=== PATIENT | male | born 1965 | race Caucasian/White ===

== ENCOUNTER 2018-08-10 10:37 | Outpatient (RCR) | payer SELFPAY ==
[2018-08-10 11:05] LABS: INR 4.1 (0.8-1.4); PROTHROMBIN TIME PATIENT 41.3 SEC (12.2-14.7)
== END 2018-11-08 | disposition home or self-care (01) ==
LOC: EDSTATUS 10:37 → LAB FS 10:37
PROVIDERS: ATTEND Pediatrics
DX: I26.99 Other pulmonary embolism without acute cor pulmonale (principal); D68.59 Other primary thrombophilia
CPT/HCPCS: 36415; 85610

== ENCOUNTER 2018-12-27 21:01 | Emergency (ER) | payer SELFPAY ==
[~2018-12-27] VITALS: Ht 188 cm; Wt 127.0 kg
[2018-12-27 22:18] LABS: HEMATOCRIT 44 % (40-54); HEMOGLOBIN 14.7 G/DL (13.3-17.7); MEAN CORPUSCULAR HEMOGLOBIN 31 PG (25-34); MEAN CORPUSCULAR HGB CONC 34 G/DL (32-36); MEAN CORPUSCULAR VOLUME 93 FL (80-99); WHITE BLOOD COUNT 12.9 10^3/uL (4.3-11.0)
[2018-12-27 22:19] LABS: BASOPHILS # (AUTO) 0.1 10^3/uL (0.0-0.1); BASOPHILS % (AUTO) 1 % (0-10); EOSINOPHILS # (AUTO) 0.3 10^3/uL (0.0-0.3); EOSINOPHILS % (AUTO) 2 % (0-10); LYMPHOCYTES % (AUTO) 38 % (12-44); MEAN PLATELET VOLUME 10.2 FL (7.4-10.4); MONOCYTES # (AUTO) 0.9 X 10^3 (0.0-1.0); MONOCYTES % (AUTO) 7 % (0-12); NEUTROPHILS # (AUTO) 6.7 X 10^3 (1.8-7.8); NEUTROPHILS % (AUTO) 52 % (42-75); PLATELET COUNT 257 10^3/uL (130-400); RED CELL DISTRIBUTION WIDTH 14.8 % (10.0-14.5)
[2018-12-27 22:20] LABS: CARBON DIOXIDE 18 MMOL/L (21-32); CHLORIDE 101 MMOL/L (98-107); POTASSIUM 4.5 MMOL/L (3.6-5.0); SODIUM 137 MMOL/L (135-145)
[2018-12-27 22:21] LABS: ALANINE AMINOTRANSFERASE 17 U/L (0-55); ALBUMIN 4.2 GM/DL (3.2-4.5); ALKALINE PHOSPHATASE 68 U/L (40-136); BILIRUBIN,TOTAL 0.5 MG/DL (0.1-1.0); BUN/CREATININE RATIO 13; CREATININE SERUM 1.06 MG/DL (0.60-1.30); GFR ESTIMATED > 60; GLUCOSE 96 MG/DL (70-105); TOTAL PROTEIN 7.3 GM/DL (6.4-8.2)
--- NOTE | 2018-12-27 22:32 | NUR ---
pt. reported he the pain in his eye was now down below the eye on the left side of his cheek and also stated he was having chest pain on the left side. pt. stated he knows he is not having a heart attack its probably more of that clotting problem.
--- NOTE | 2018-12-27 22:32 | ED General ---
General Chief Complaint: Lower Extremity Stated Complaint: LT LEG SWELLING, LT EYE VISION LOST, SOB Nursing Triage Note: PT. REPORTED HIS LEFT LEG IS SWOLLEN AND HE HAS A BURNING SENSATION FROM THE LEFT KNEE TO THE GROIN. HE REPORTED HIS LEFT EYE IS BLURRY AND TWITCHING, AND HE HAS CHEST TIGHTNESS Nursing Sepsis Screen: No Definite Risk Source of Information: Patient History of Present Illness Date Seen by Provider: Dec 27, 2018 Time Seen by Provider: 21:31 Initial Comments Patient is a 53-year-old male presenting with complaints of swelling and pain to his left leg. He has a burning sensation in his left groin and thigh. He reports having pain and blurred vision from the left eye that started around 7 PM tonight. He has been having some shortness of breath for the last several days. He does have a history of a clotting disorder and has had several blood clots in the past. He is currently taking 15 mg a day of warfarin. He denies missing any doses of the medication. He also states he had approximately a sixpack appear today. He denies any trauma or injury. He became more concerned about his symptoms when his son pointed out that his left leg was so swollen. He figured that having the left eye along with the left leg swelling and pain and having shortness of breath all the same time were enough issues to bring him to the hospital to be evaluated. He drove himself here to the hospital to be seen. Allergies and Home Medications Allergies Uncoded Allergies: IVP DYE (Allergy, Unknown, 12/27/18) Patient Home Medication List Home Medication List Reviewed: Yes Review of Systems Review of Systems Constitutional: No chills, No dizziness, No fever, No weakness EENTM: blurred vision (left eye especially with the lateral vision), eye pain (left side); No ear discharge, No hearing loss, No ear pain, No double vision, No hoarseness, No mouth pain, No epistaxis, No nose congestion, No nose pain, No throat pain, No throat swelling Respiratory: cough (mild), dyspnea on exertion; No hemoptysis, No orthopnea; short of breath; No stridor, No wheezing Cardiovascular: chest pain (tightness in his chest), edema (left greater than right lower extremity) Gastrointestinal: no symptoms reported Genitourinary: no symptoms reported Musculoskeletal: see HPI Skin: change in color (reports that the left leg usually has a black or dark color to it especially when it gets very swollen like tonight.) Psychiatric/Neurological: Headache (around his left eye) Hematologic/Lymphatic: Blood Clots (history of blood clots and has a history of clotting disorder) Past Hbxjqyu-Ccbvvh-Cuyygn Hx Past Med/Social Hx: Reviewed Nursing Past Med/Soc Hx Patient Social History Recent Foreign Travel: No Contact w/Someone Who Travel: No Recent Infectious Disease Expo: No Physical Abuse: No Sexual Abuse: No Mistreated: No Fear: No Physical Exam Vital Signs Vital Signs - First Documented 12/27/18 21:06 Temp 36.0 Pulse 108 Resp 20 B/P (MAP) 142/92 (109) Pulse Ox 95 O2 Delivery Room Air Capillary Refill : Less Than 3 Seconds Height, Weight, BMI Height: '" Weight: lbs. oz. kg; 231.00 BMI Method: General Appearance: No Apparent Distress, WD/WN, Obese Eyes: Bilateral Eye PERRL, Bilateral Eye EOMI HEENT: Pharynx Normal, Other (no obvious retinal hemorrhage or abnormality on direct ophthalmoscope exam) Neck: Full Range of Motion, Normal Inspection, Non Tender, Supple; No Carotid Bruit Respiratory: Chest Non Tender, Lungs Clear, Normal Breath Sounds, No Accessory Muscle Use, No Respiratory Distress Cardiovascular: Regular Rate, Rhythm, Normal Peripheral Pulses Gastrointestinal: No Pulsatile Mass, Non Tender, Soft Extremity: Normal Range of Motion, Calf Tenderness, Pedal Edema Neurologic/Psychiatric: Alert, Oriented x3, No Motor/Sensory Deficits Skin: Normal Color, Warm/Dry Progress/Results/Core Measures Suspected Sepsis Recent Fever Within 48 Hours: No Infection Criteria Present: None New/Unexplained Altered Menta: No Sepsis Screen: No Definite Risk SIRS Temperature: Pulse: 108 Respiratory Rate: 20 Laboratory Tests 12/27/18 21:44: White Blood Count 12.9H Blood Pressure 142 /92 Mean: 109 Laboratory Tests 12/27/18 21:44: Creatinine 1.06, INR Comment 3.5H, Platelet Count 257, Total Bilirubin 0.5 Results/Orders Lab Results Laboratory Tests Test 12/27/18 21:44 Range/Units White Blood Count 12.9 H 4.3-11.0 10^3/uL Red Blood Count 4.70 4.35-5.85 10^6/uL Hemoglobin 14.7 13.3-17.7 G/DL Hematocrit 44 40-54 % Mean Corpuscular Volume 93 80-99 FL Mean Corpuscular Hemoglobin 31 25-34 PG Mean Corpuscular Hemoglobin Concent 34 32-36 G/DL Red Cell Distribution Width 14.8 H 10.0-14.5 % Platelet Count 257 130-400 10^3/uL Mean Platelet Volume 10.2 7.4-10.4 FL Neutrophils (%) (Auto) 52 42-75 % Lymphocytes (%) (Auto) 38 12-44 % Monocytes (%) (Auto) 7 0-12 % Eosinophils (%) (Auto) 2 0-10 % Basophils (%) (Auto) 1 0-10 % Neutrophils # (Auto) 6.7 1.8-7.8 X 10^3 Lymphocytes # (Auto) 5.0 H 1.0-4.0 X 10^3 Monocytes # (Auto) 0.9 0.0-1.0 X 10^3 Eosinophils # (Auto) 0.3 0.0-0.3 10^3/uL Basophils # (Auto) 0.1 0.0-0.1 10^3/uL Prothrombin Time 36.7 H 12.2-14.7 SEC INR Comment 3.5 H 0.8-1.4 Activated Partial Thromboplast Time 63 H 24-35 SEC D-Dimer < 0.27 0.00-0.49 UG/ML Sodium Level 137 135-145 MMOL/L Potassium Level 4.5 3.6-5.0 MMOL/L Chloride Level 101 98-107 MMOL/L Carbon Dioxide Level 18 L 21-32 MMOL/L Anion Gap 18 H 5-14 MMOL/L Blood Urea Nitrogen 14 7-18 MG/DL Creatinine 1.06 0.60-1.30 MG/DL Estimat Glomerular Filtration Rate > 60 BUN/Creatinine Ratio 13 Glucose Level 96 70-105 MG/DL Calcium Level 9.0 8.5-10.1 MG/DL Corrected Calcium 8.8 8.5-10.1 MG/DL Total Bilirubin 0.5 0.1-1.0 MG/DL Aspartate Amino Transf (AST/SGOT) 24 5-34 U/L Alanine Aminotransferase (ALT/SGPT) 17 0-55 U/L Alkaline Phosphatase 68 40-136 U/L Total Protein 7.3 6.4-8.2 GM/DL Albumin 4.2 3.2-4.5 GM/DL Serum Alcohol 156 H <10 MG/DL My Orders Orders - CHAPARRITA LAO MD Iv/Invasive Line Insertion .IV start (12/27/18 21:29) Cbc With Automated Diff (12/27/18 21:29) Comprehensive Metabolic Panel (12/27/18 21:29) Alcohol (12/27/18 21:29) Protime With Inr (12/27/18:) Partial Thromboplastin Time (12/27/18:) Fibrin Degradation Products (12/27/18 21:29) Ct Head Wo (12/27/18 21:29) Heparin Drip 29915 Unit/500ml (Heparin (12/27/18 23:17) Heparin (Bolus Per Protocol) (Heparin (B (12/27/18 23:30) Hydromorphone Injection (Dilaudid Inject (12/27/18 23:32) Medications Given in ED Current Medications Medications Dose Ordered Sig/Julian Route Start Time Stop Time Status Last Admin Dose Admin Heparin Sodium (Porcine) 5,000 unit ONCE ONCE IV 12/27/18 23:30 12/27/18 23:31 DC 12/27/18 23:48 5,000 UNIT Heparin Sodium/ Dextrose 500 ml @ 0 mls/hr Q0M ONCE IV 12/27/18 23:17 12/27/18 23:23 DC 12/28/18 00:05 12 MLS/HR Vital Signs/I&O 12/27/18 12/28/18 21:06 00:12 Temp 36.0 36.4 Pulse 108 98 Resp 20 16 B/P (MAP) 142/92 (109) 140/86 Pulse Ox 95 96 O2 Delivery Room Air Room Air Capillary Refill : Less Than 3 Seconds Blood Pressure Mean: 109 Progress Note #1: Progress Note Counseled patient that I did not have ultrasound or ophthalmology here. We will check basic labs and a CT scan of his head. As I did not see anything abnormal on tract ophthalmoscope feeling could not give him an answer for his visual changes. I would need him to follow up for further testing and evaluation. Ideally that would be tonight with a transfer to Hospital or doctor that has ophthalmology as well as getting him seen by a facility with ultrasound or testing that can evaluate his leg and chest since he has IV contrast dye allergy and has to have a full 24 hour prep to allow him to get the dye. Progress Note #2: Progress Note Patient's CBC and chemistry did not show any acute significant abnormality. His coags are still pending. He did complain to the nurse that his eye pain has m tristin down to his cheek down. He is complaining now that the pain in his eye and cheek as well as his chest and leg her worse. However he did drive himself here and stated that he did not have a ride. He was still saying that he did not want to be transferred. So at this point he still could not have anything for pain at that than Tylenol or Toradol or ibuprofen type medications. He was wanting to go ahead and wait until the rest of the labs and tests are back. His CT head did not show any acute significant abnormality. He had no pooling of blood or definite blood clot in his eye ball. Progress Note #3: Progress Note The coags came back and showed that his INR was 3.5 which would be therapeutic in his d-dimer was negative however with his risk factors of factor V Leiden and protein C deficiency he is still at high risk of having blood clots and without having an ultrasound or further testing and would still be concerned that he could possibly have a blood clot. When reviewing the results with the patient I advised him again that without seen in an eye doctor or having ultrasound and could not tell him that he was having a blood clot causing the symptoms. With this the patient was willing to be transferred for further evaluation. Will contact [facility] was just the closest trauma center which would likely have ophthalmology and ultrasound services the patient would need. Although he has not had any trauma to cause the symptoms fact that the hospital is a trauma Center and a larger tertiary care center would allow it to have the Specialist and services that could help to further evaluate and rule out some of his problems. Departure Impression Primary Impression: Blurred vision, left eye Additional Impressions: Swelling of left lower extremity Shortness of breath History of DVT (deep vein thrombosis) Factor 5 Leiden mutation, heterozygous Protein C deficiency Alcohol intoxication Qualified Codes: F10.920 - Alcohol use, unspecified with intoxication, uncomplicated Disposition: 02 XFER SHT-TRM HOSP Condition: Stable Transfer Time Spoke to Accepting Phy: 23:44 Transfer Progress Notes D/w [employer] Bing Storm who accepted on behalf of Dr. Richelle Ricks for the transfer to [facility]. With his visual deficit from the left eye, leg swelling, shortness of breath and history of blood clots he would need evaluation by ophthalmology and ultrasound as well as he might need a VQ scan or premedication to be able to do a CT scan with IV and I to evaluate his lungs. If the warfarin is not working for him he may need a different medication for managing his blood clots. Since his symptoms of the eye and leg swelling in her similar to previous blood clots he's had even though his INR should be therapeutic he reports that he has had blood clots with an INR over 3 in the past. Transfer Facility: [facility] Method of Transfer: EMS Departure-Patient Inst. Referrals: JARRET CULP MD (PCP/Family) Primary Care Physician CHAPARRITA LAO MD Dec 27, 2018 22:32
--- NOTE | 2018-12-27 22:42 | NUR ---
pt. choose to wait until the labs are back before taking any pain medication because he drove to the hospital and no one came with him.
[2018-12-27 22:55] LABS: PARTIAL THROMBOPLASTIN TIME 63 SEC (24-35)
[2018-12-27 23:09] LABS: INR 3.5 (0.8-1.4); PROTHROMBIN TIME PATIENT 36.7 SEC (12.2-14.7)
[2018-12-27 23:10] LABS: FIBRIN DEGRADATION PRODUCTS < 0.27 UG/ML (0.00-0.49)
[2018-12-27] MEDS: HYDROmorphone 2 MG/ML VIAL (DILAUDID) IV STA (23:47)
[2018-12-27] MEDS: HEParin 1000 UNIT/ML (10ML VIAL) FOR BOLUS IV ONE (23:48)
[2018-12-28] MEDS: HEParin DRIP 25000 UNIT/500ML 500 ML IV ONE (00:05)
--- NOTE | 2018-12-28 00:11 | NUR ---
restarted the iv in the left hand with a 20 gauge.
[2018-12-28 00:12] VITALS: BP 140/86
--- NOTE | 2018-12-28 05:56 | Diagnostic Imaging Report ---
PROCEDURE: CT head without contrast. TECHNIQUE: Multiple contiguous axial images were obtained through the brain without the use of intravenous contrast. Auto Exposure Controls were utilized during the CT exam to meet ALARA standards for radiation dose reduction. INDICATION: Left eye twitching and blurry vision. COMPARISON: None. FINDINGS: BRAIN: No parenchymal hemorrhage, midline shift or mass effect. [place]-white matter differentiation is intact. No acute infarct. No significant white matter lesions. Ventricles, sulci and basilar cisterns are normal. EXTRA-AXIAL SPACES: No subdural or epidural collections. ORBITS AND PARANASAL SINUSES: Visualized orbits and globes are intact. There is mild mucosal thickening and partial opacification of the ethmoid air cells. Visualized paranasal sinuses and mastoid air cells are otherwise clear. CALVARIUM AND SOFT TISSUES: The calvarium is intact. No fractures or suspicious bony lesions. The extracranial soft tissues are unremarkable. IMPRESSION: No acute intracranial pathology. Findings are in agreement with initial teleradiology report. Dictated by: Dictated on workstation # [id number]
== END 2018-12-28 00:35 | disposition short-term general hospital (02) ==
LOC: EDUNIT# 21:01 → ER FS 21:03
DX: M79.89 Other specified soft tissue disorders (principal); H53.8 Other visual disturbances; R06.02 Shortness of breath; Z86.718 Personal history of other venous thrombosis and embolism; D68.51 Activated protein C resistance; D68.59 Other primary thrombophilia; F10.129 Alcohol abuse with intoxication, unspecified; Z91.041 Radiographic dye allergy status; Z79.01 Long term (current) use of anticoagulants
CPT/HCPCS: 36415; 70450; 80053; 80320; 85025; 85379; 85610; 85730; 96374; 96375

== ENCOUNTER 2019-01-19 14:59 | Outpatient (RCR) | payer SELFPAY ==
[2018-12-30 15:54] LABS: INR 1.9 (0.8-1.4); PROTHROMBIN TIME PATIENT 22.8 SEC (12.2-14.7)
[2019-01-06 12:48] LABS: PROTHROMBIN TIME PATIENT 35.7 SEC (12.2-14.7)
[2019-01-06 12:49] LABS: INR 3.4 (0.8-1.4)
[2019-01-18 14:09] LABS: INR 5.9 (0.8-1.4); PROTHROMBIN TIME PATIENT 55.3 SEC (12.2-14.7)
[2019-01-19 15:33] LABS: INR 3.3 (0.8-1.4)
== END 2019-03-30 ==
LOC: LAB FS 14:59
PROVIDERS: ATTEND Pediatrics
DX: I26.99 Other pulmonary embolism without acute cor pulmonale (principal); D68.59 Other primary thrombophilia
CPT/HCPCS: 36415; 85610

== ENCOUNTER 2019-05-08 19:37 | Emergency (ER) | payer SELFPAY ==
[~2019-05-08] VITALS: Ht 187.9 cm; Wt 130.1 kg
[2019-05-08] MEDS ORDERED: NS IV 1000 ML 1,000 ML IV ONE (20:00)
--- NOTE | 2019-05-08 20:03 | ED Respiratory ---
General Chief Complaint: Respiratory Problems Stated Complaint: LEG SWELLING/PAIN,EYE PAIN,SOA Source: patient, family Exam Limitations: clinical condition History of Present Illness Date Seen by Provider: May 08, 2019 Time Seen by Provider: 19:50 Initial Comments 54-year-old male presents with acute shortness of breath left lower extremity enlargement and a long-time history of factor V Leiden deficiency and multiple pulmonary emboli and deep vein thromboses. Patient reports that he has been treated at the [facility] and [facility] numerous times. He states he is allergic to contrast media has to be given a 1 day treatment or steroids before he can have a CTA. Patient states that he notices leg swelling 2 days ago. He has dehydrated and he smokes one pack of cigarettes per day. Patient also has a history of retinal vein obstruction with "a mini stroke". He admits to some shortness of breath but no signs of severe chest pain shortness of breath or ischemic heart disease but in light of his prior history of multiple pulmonary emboli and statements that it feels the same empirically he needs to be evaluated and treated for PE. We're not able to get a CTA of the patient because of his allergy contrast media. He has given informed consent for diagnostic and therapeutic services. Reports he takes 15 mg of warfarin daily 4 days out of the week and 12.5 mg on alternate days 3 days a week. He does not know the result of his last INR. In the [facility]. Please be advised that this dictation utilizes [employer] software. As above made to correct all errors. Some errors or able to penetrate the review process. 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 PTT will also be done. Timing/Duration: yesterday, getting worse Severity: moderate Prior Episodes/Possible Cause: frequent episodes (DVT and too many to count episodes of pulmonary emboli. And also is dehydrated and admits he smokes a pack per day. She does admit that he is aware of the risks benefits and alternatives of these continued high risk behaviors in light of his factor V Leiden deficiency) Modifying Factors: Improves With Activity, Improves With Coughing, Improves With Lying Down, Improves With Rest, Improves With Other (activity and dehydration) Associated Symptoms: cough, dizziness, lightheadedness, muscle aches, shortness of breath (and long-standing history of multiple pulmonary emboli.) Allergies and Home Medications Allergies Uncoded Allergies: IVP DYE (Allergy, Unknown, 12/27/18) Patient Home Medication List Home Medication List Reviewed: Yes Review of Systems Review of Systems Constitutional: malaise, weakness, other (shortness of breath with symptoms similar to previous pulmonary emboli) EENTM: blurred vision (history of retinal vein obstruction), mouth pain (for oral hygiene and dry mucous membranes) Respiratory: cough, dyspnea on exertion, short of breath, other (history of multiple pulmonary emboli in the past secondary to factor V Leiden deficiency) Cardiovascular: chest pain, syncope, other (history of multiple pulmonary emboli) Gastrointestinal: abdominal pain (diffuse abdominal discomfort upper right and upper left chest), nausea Genitourinary: decreased output (secondary to dehydration) Musculoskeletal: back pain, joint pain, muscle pain, muscle stiffness, muscle weakness (especially in the chest secondary to shortness of breath and possible pulmonary emboli) Skin: change in color (multiple tattoos noted), dryness (insistent with dehydration) Psychiatric/Neurological: Anxiety, Headache, Pre-Existing Deficit (from high retinal vein thrombosis), Weakness Hematologic/Lymphatic: Blood Clots (factor V Leiden deficiency multiple DVTs and multiple PEs) Immunological/Allergic: no symptoms reported Past Ihivcfm-Axwajz-Rkmbpx Hx Patient Social History Smoking Status: Current Everyday Smoker Recent Foreign Travel: No Contact w/Someone Who Travel: No Physical Exam Vital Signs - First Documented 05/08/19 19:42 Temp 36.3 Pulse 92 Resp 20 B/P (MAP) 156/82 (106) Pulse Ox 100 O2 Delivery Room Air Capillary Refill : Height: '" Weight: lbs. oz. kg; 35.00 BMI Method: General Appearance: moderate distress (very shortness of breath and symptoms consistent with pulmonary emboli patient is dehydrated and weak), obese HEENT: PERRL/EOMI (is reports he had a left eye retinal vein thrombosis. States he has discomfort in the left eye and now is asking for pain medication. Removing off on any analgesics until he has further evaluation and transfer. 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, no motor/sensory deficits, alert, oriented x 3, motor weakness, depressed affect, other (pain seems to be resigned to continued pulmonary emboli because of his factor V Leiden deficiency) Skin: normal color (with multiple tattoos), tattoos/piercings Lymphatic: no adenopathy Progress/Results/Core Measures Suspected Sepsis SIRS Temperature: Pulse: Respiratory Rate: Laboratory Tests 05/08/19 19:50: White Blood Count 14.1H Blood Pressure / Mean: Laboratory Tests 05/08/19 19:50: Creatinine 1.18, INR Comment 2.1H, Platelet Count 280, Total Bilirubin 0.5 05/08/19 20:00: INR Comment Results/Orders Lab Results Laboratory Tests Test 05/08/19 19:50 05/08/19 20:00 Range/Units White Blood Count 14.1 H 4.3-11.0 10^3/uL Red Blood Count 4.77 4.35-5.85 10^6/uL Hemoglobin 15.2 13.3-17.7 G/DL Hematocrit 44 40-54 % Mean Corpuscular Volume 93 80-99 FL Mean Corpuscular Hemoglobin 32 25-34 PG Mean Corpuscular Hemoglobin Concent 34 32-36 G/DL Red Cell Distribution Width 14.4 10.0-14.5 % Platelet Count 280 130-400 10^3/uL Mean Platelet Volume 9.9 7.4-10.4 FL Neutrophils (%) (Auto) 50 42-75 % Lymphocytes (%) (Auto) 37 12-44 % Monocytes (%) (Auto) 9 0-12 % Eosinophils (%) (Auto) 3 0-10 % Basophils (%) (Auto) 1 0-10 % Neutrophils # (Auto) 7.1 1.8-7.8 X 10^3 Lymphocytes # (Auto) 5.2 H 1.0-4.0 X 10^3 Monocytes # (Auto) 1.2 H 0.0-1.0 X 10^3 Eosinophils # (Auto) 0.4 H 0.0-0.3 10^3/uL Basophils # (Auto) 0.1 0.0-0.1 10^3/uL Neutrophils % (Manual) 43 % Lymphocytes % (Manual) 46 % Monocytes % (Manual) 3 % Eosinophils % (Manual) 6 % Basophils % (Manual) 2 % Band Neutrophils 0 % Blood Morphology Comment NORMAL Prothrombin Time 24.6 H 12.2-14.7 SEC INR Comment 2.1 H 0.8-1.4 D-Dimer 0.30 0.00-0.49 UG/ML Sodium Level 139 135-145 MMOL/L Potassium Level 4.4 3.6-5.0 MMOL/L Chloride Level 103 98-107 MMOL/L Carbon Dioxide Level 22 21-32 MMOL/L Anion Gap 14 5-14 MMOL/L Blood Urea Nitrogen 15 7-18 MG/DL Creatinine 1.18 0.60-1.30 MG/DL Estimat Glomerular Filtration Rate > 60 BUN/Creatinine Ratio 13 Glucose Level 104 70-105 MG/DL Calcium Level 9.1 8.5-10.1 MG/DL Corrected Calcium 8.7 8.5-10.1 MG/DL Magnesium Level 2.1 1.6-2.4 MG/DL Total Bilirubin 0.5 0.1-1.0 MG/DL Aspartate Amino Transf (AST/SGOT) 23 5-34 U/L Alanine Aminotransferase (ALT/SGPT) 19 0-55 U/L Alkaline Phosphatase 65 40-136 U/L Total Protein 7.5 6.4-8.2 GM/DL Albumin 4.5 3.2-4.5 GM/DL Activated Partial Thromboplast Time 42 H 24-35 SEC Micro Results Microbiology 05/08/19 Influenza Types A,B Antigen (GOOD) - Final, Complete My Orders Orders - DIANELYS ALVAREZ DO Cbc And Manual Diff (05/08/19 19:53) Comprehensive Metabolic Panel (05/08/19 19:53) Protime With Inr (05/08/19 19:53) Fibrin Degradation Products (05/08/19 19:53) Urinalysis (05/08/19 19:53) Ekg Tracing (05/08/19 19:53) Chest 1 View Ap/Pa Only (05/08/19 19:53) Influenza A And B Antigens (05/08/19 19:53) Magnesium (05/08/19 19:53) Ns Iv 1000 Ml (Sodium Chloride 0.9%) (05/08/19 20:00) Ed Iv/Invasive Line Start (05/08/19 20:08) Continuous Ekg Monitoring (05/08/19 20:08) Drug Screen Stat (Urine) (05/08/19 20:25) Partial Thromboplastin Time (05/08/19 20:22) Protime With Inr (05/08/19 20:22) Heparin Drip 07983 Unit/500ml (Heparin (05/08/19 20:46) Heparin (Bolus Per Protocol) (Heparin (B (05/08/19 21:00) Medications Given in ED Current Medications Medications Dose Ordered Sig/Julian Route Start Time Stop Time Status Last Admin Dose Admin Heparin Sodium (Porcine) HEPARIN FULL PROTOC... ONCE ONCE IV 05/08/19 21:00 05/08/19 21:01 DC 05/08/19 20:58 5,000 UNIT Heparin Sodium/ Dextrose 500 ml @ 0 mls/hr Q0M ONCE IV 05/08/19 20:46 05/08/19 20:49 DC 05/08/19 21:00 10.4 MLS/HR Sodium Chloride 1,000 ml @ 100 mls/hr Q10H ONCE IV 05/08/19 20:00 05/09/19 05:59 05/08/19 20:19 100 MLS/HR Vital Signs/I&O 05/08/19 19:42 Temp 36.3 Pulse 92 Resp 20 B/P (MAP) 156/82 (106) Pulse Ox 100 O2 Delivery Room Air Capillary Refill : Progress Note : Time: 20:[address] [facility] was contacted and notes that the patient has been at their facility in the past. The patient has also been at [facility]. Patient reports she's also been to [facility]. Patient's laboratory findings thus far reveals a white count of 14.1 hemoglobin 15.2 INR 2.1 PTT 24.6 d-dimer 0.3 Chem-12 is normal. PTT is still pending. Plan to give the patient 5000 units of heparin IV as initial dose. We're waiting for the [facility] transfer unit to contact us in regard to acceptance of the patient. ECG Initial ECG Impression Date: May 08, 2019 Initial ECG Impression Time: 20:33 (Patient's EKG shows a sinus rhythm of 90 with ventricular trigeminy monophasic.) Initial ECG Rate: 90 Initial ECG Rhythm: Normal Sinus (with ventricular trigeminy) Initial ECG Intervals: QT (QTc 453) Initial ECG Impression: Nonspecific Changes (and regular trigeminy possibly consistent with pulmonary emboli) Initial ECG Comparisson: No Previous ECG Available Counseling-Symptomatic: 10+Minutes (he was given and strongly recommended to stop smoking as this factor V Leiden deficiency is severely complicated by smoking and dehydration) Departure Impression Primary Impression: Pulmonary embolism Additional Impressions: Dehydration Deep vein thrombosis, lower left extremity Severe tobacco dependence Disposition: XFER SHT-TRM HOSP Condition: Stable Transfer Transfer Reason: Exceeds level of care Time Spoke to Accepting Phy: 21:15 (Dr. Dr. Carrasco) Transfer Progress Notes She was admitted by the transfer team assigned to room 339A under Dr. Richelle CARRASCO Transfer Time: 21:25 Transfer Facility: [facility] room number 2339A telemetry Method of Transfer: EMS Departure-Patient Inst. Decision time for Depature: 21:26 Referrals: JARRET CULP MD (PCP/Family) Primary Care Physician Patient Instructions: Pulmonary Embolism (Blood Clot in the Lungs) Add. Discharge Instructions: Patient is medically stable for discharge by EMS ACLS unit to [facility]. Patient is on heparin drip and has been given a initial dose of heparin 5000 units. All discharge instructions reviewed with patient and/or family. Voiced understanding. DIANELYS ALVAREZ DO May 08, 2019 20:03
[2019-05-08 20:04] LABS: HEMATOCRIT 44 % (40-54); HEMOGLOBIN 15.2 G/DL (13.3-17.7); MEAN CORPUSCULAR HEMOGLOBIN 32 PG (25-34); WHITE BLOOD COUNT 14.1 10^3/uL (4.3-11.0)
[2019-05-08 20:05] LABS: BASOPHILS # (AUTO) 0.1 10^3/uL (0.0-0.1); BASOPHILS % (AUTO) 1 % (0-10); EOSINOPHILS # (AUTO) 0.4 10^3/uL (0.0-0.3); EOSINOPHILS % (AUTO) 3 % (0-10); LYMPHOCYTES # (AUTO) 5.2 X 10^3 (1.0-4.0); LYMPHOCYTES % (AUTO) 37 % (12-44); MEAN CORPUSCULAR HGB CONC 34 G/DL (32-36); MEAN CORPUSCULAR VOLUME 93 FL (80-99); MEAN PLATELET VOLUME 9.9 FL (7.4-10.4); MONOCYTES # (AUTO) 1.2 X 10^3 (0.0-1.0); MONOCYTES % (AUTO) 9 % (0-12); NEUTROPHILS # (AUTO) 7.1 X 10^3 (1.8-7.8); NEUTROPHILS % (AUTO) 50 % (42-75); PLATELET COUNT 280 10^3/uL (130-400); RED CELL DISTRIBUTION WIDTH 14.4 % (10.0-14.5)
--- NOTE | 2019-05-08 20:16 | Diagnostic Imaging Report ---
CHEST 1 VIEW AP/PA ONLY Indication: Shortness of breath Comparison: None available. Findings: No focal airspace disease in the visualized lungs. Please note that the posterior lower lobes are poorly evaluated by portable radiography. No pleural effusion or pneumothorax. Normal cardiomediastinal silhouette. Impression: 1. No acute cardiopulmonary process by portable radiography. Dictated by: Dictated on workstation # [id number]
[2019-05-08 20:21] LABS: BUN/CREATININE RATIO 13; CARBON DIOXIDE 22 MMOL/L (21-32); CHLORIDE 103 MMOL/L (98-107); CREATININE SERUM 1.18 MG/DL (0.60-1.30); FIBRIN DEGRADATION PRODUCTS 0.3 UG/ML (0.00-0.49); GFR ESTIMATED > 60; INR 2.1 (0.8-1.4); POTASSIUM 4.4 MMOL/L (3.6-5.0); PROTHROMBIN TIME PATIENT 24.6 SEC (12.2-14.7); SODIUM 139 MMOL/L (135-145)
[2019-05-08 20:22] LABS: ALANINE AMINOTRANSFERASE 19 U/L (0-55); ALBUMIN 4.5 GM/DL (3.2-4.5); ALKALINE PHOSPHATASE 65 U/L (40-136); BILIRUBIN,TOTAL 0.5 MG/DL (0.1-1.0); CALCIUM 9.1 MG/DL (8.5-10.1); GLUCOSE 104 MG/DL (70-105); MAGNESIUM 2.1 MG/DL (1.6-2.4); TOTAL PROTEIN 7.5 GM/DL (6.4-8.2)
[2019-05-08 20:34] LABS: PARTIAL THROMBOPLASTIN TIME 42 SEC (24-35)
[2019-05-08] MEDS ORDERED: HEParin DRIP 25000 UNIT/500ML 500 ML IV ONE (20:46)
[2019-05-08 20:54] LABS: BAND NEUTROPHILS 0 %; BASOPHILS % (MANUAL) 2 %; EOSINOPHILS % (MANUAL) 6 %; LYMPHOCYTES % (MANUAL) 46 %; MONOCYTES % (MANUAL) 3 %; NEUTROPHILS % (MANUAL) 43 %; RBC MORPH NORMAL
[2019-05-08] MEDS ORDERED: HEParin 1000 UNIT/ML (10ML VIAL) FOR BOLUS IV ONE (21:00)
[2019-05-08] MEDS ORDERED: HYDROcodone/APAP 5 MG/325 MG (LORTAB) TAB PO ONE (21:30)
[2019-05-09 00:15] VITALS: BP 120/74
== END 2019-05-09 00:15 | disposition short-term general hospital (02) ==
LOC: EDUNIT# 19:37 → ER FS 19:39
DX: I26.99 Other pulmonary embolism without acute cor pulmonale (principal); I82.402 Acute embolism and thrombosis of unspecified deep veins of left lower extremity; E86.0 Dehydration; F17.200 Nicotine dependence, unspecified, uncomplicated
CPT/HCPCS: 36415; 71045; 80053; 83735; 85007; 85027; 85379; 85610; 85730; 87804; 93005; 96374

== ENCOUNTER 2019-06-07 14:16 | Outpatient (RCR) | payer SELFPAY ==
[2019-05-23 13:31] LABS: INR 3.3 (0.8-1.4)
[2019-06-07 14:36] LABS: INR 3.7 (0.8-1.4); PROTHROMBIN TIME PATIENT 38.1 SEC (12.2-14.7)
== END 2019-08-21 | disposition home or self-care (01) ==
LOC: LAB FS 14:16
PROVIDERS: ATTEND Pediatrics
DX: I26.99 Other pulmonary embolism without acute cor pulmonale (principal)
CPT/HCPCS: 36415; 85610

== ENCOUNTER 2019-10-12 13:53 | Outpatient (RCR) | payer SELFPAY ==
[2019-10-12 14:54] LABS: INR 3.2 (0.8-1.4)
== END 2020-01-10 | disposition home or self-care (01) ==
LOC: LAB FS 13:53
PROVIDERS: ATTEND Pediatrics
DX: I26.99 Other pulmonary embolism without acute cor pulmonale (principal)
CPT/HCPCS: 36415; 85610

== ENCOUNTER 2019-12-14 13:29 | Outpatient (RCR) | payer SELFPAY ==
[2019-12-14 14:41] LABS: INR 1.6 (0.8-1.4); PROTHROMBIN TIME PATIENT 19.1 SEC (12.2-14.7)
[2019-12-21 12:45] LABS: INR 1.7 (0.8-1.4); PROTHROMBIN TIME PATIENT 20.2 SEC (12.2-14.7)
== END 2020-03-13 | disposition home or self-care (01) ==
LOC: LAB FS 13:29
PROVIDERS: ATTEND Pediatrics
DX: I26.99 Other pulmonary embolism without acute cor pulmonale (principal)
CPT/HCPCS: 36415; 85610

== ENCOUNTER 2019-12-17 02:38 | Emergency (ER) | payer SELFPAY ==
[2019-12-17] MEDS ORDERED: FAMOTIDINE 20MG/2ML IV (PEPCID) IVP ONE (03:00)
[2019-12-17 03:04] LABS: BASOPHILS # (AUTO) 0.1 10^3/uL (0.0-0.1); BASOPHILS % (AUTO) 1 % (0-10); EOSINOPHILS # (AUTO) 0.4 10^3/uL (0.0-0.3); EOSINOPHILS % (AUTO) 3 % (0-10); HEMATOCRIT 43 % (40-54); HEMOGLOBIN 14.7 G/DL (13.3-17.7); LYMPHOCYTES # (AUTO) 4.8 X 10^3 (1.0-4.0); LYMPHOCYTES % (AUTO) 40 % (12-44); MEAN CORPUSCULAR HEMOGLOBIN 33 PG (25-34); MEAN CORPUSCULAR HGB CONC 35 G/DL (32-36); MEAN CORPUSCULAR VOLUME 96 FL (80-99); MEAN PLATELET VOLUME 9.6 FL (7.4-10.4); MONOCYTES % (AUTO) 8 % (0-12); NEUTROPHILS # (AUTO) 5.9 X 10^3 (1.8-7.8); NEUTROPHILS % (AUTO) 48 % (42-75); PLATELET COUNT 314 10^3/uL (130-400); RED CELL DISTRIBUTION WIDTH 14.8 % (10.0-14.5); WHITE BLOOD COUNT 12.2 10^3/uL (4.3-11.0)
[2019-12-17 03:15] LABS: INR 1.5 (0.8-1.4); PROTHROMBIN TIME PATIENT 17.9 SEC (12.2-14.7)
[2019-12-17 03:16] LABS: BAND NEUTROPHILS 1 %; EOSINOPHILS % (MANUAL) 6 %; LYMPHOCYTES % (MANUAL) 37 %; MONOCYTES % (MANUAL) 5 %; NEUTROPHILS % (MANUAL) 51 %
[2019-12-17 03:20] LABS: BUN/CREATININE RATIO 8; CARBON DIOXIDE 22 MMOL/L (21-32); CHLORIDE 105 MMOL/L (98-107); CREATININE SERUM 1.08 MG/DL (0.60-1.30); GFR ESTIMATED > 60; POTASSIUM 4.2 MMOL/L (3.6-5.0); SODIUM 140 MMOL/L (135-145)
[2019-12-17 03:21] LABS: ALANINE AMINOTRANSFERASE 20 U/L (0-55); ALBUMIN 4.6 GM/DL (3.2-4.5); ALKALINE PHOSPHATASE 58 U/L (40-136); BILIRUBIN,TOTAL 0.3 MG/DL (0.1-1.0); CALCIUM 8.7 MG/DL (8.5-10.1); GLUCOSE 118 MG/DL (70-105); LIPASE 30 U/L (8-78); TOTAL PROTEIN 7.4 GM/DL (6.4-8.2)
[2019-12-17] MEDS ORDERED: ENOXAPARIN 80 MG/0.8 ML (LOVENOX) SYR SC ONE (03:30)
--- NOTE | 2019-12-17 03:31 | ED General ---
General Chief Complaint: Chest Pain Stated Complaint: CHEST PAIN Nursing Triage Note: Pt complaining of chest pain that started yesterday morning and increased after he left the bar tonight Nursing Sepsis Screen: No Definite Risk Source of Information: Patient History of Present Illness Date Seen by Provider: Dec 17, 2019 Time Seen by Provider: 02:30 Initial Comments Patient is a 54-year-old male with history of DVT, PE and factor V Leyden deficiency presents with increased chest pain and generalized malaise after leaving the bar this evening. Patient's strength multiple beers throughout the evening. Denies shortness of breath but does report concerned that his last INR was 1.63 days ago. He states he is concerned that he he begins to clot with his INR is less than 2. Patient recently admitted for hemoptysis with an INRs greater than 71 week ago. He denies change medication and states that he is compliant with his Coumadin. Takes 12.5 mg of Coumadin Wednesday with a baby aspirin and 50 mg Wednesday, Wednesday and Wednesday. Denies leg pain or swelling. No headache, dizziness. Denies palpitations, shortness breath, nausea vomiting and abdominal pain. No other acute symptoms or complaints. Timing/Duration: 1-3 Hours Severity: Mild Associated Systoms: Chest Pain Allergies and Home Medications Allergies Uncoded Allergies: IVP DYE (Allergy, Unknown, 12/27/18) Patient Home Medication List Home Medication List Reviewed: Yes Review of Systems Review of Systems Constitutional: see HPI EENTM: see HPI Respiratory: see HPI Cardiovascular: see HPI Gastrointestinal: see HPI Genitourinary: see HPI Musculoskeletal: no symptoms reported Skin: see HPI Psychiatric/Neurological: See HPI Hematologic/Lymphatic: See HPI Immunological/Allergic: see HPI All Other Systems Reviewed Negative Unless Noted: Yes Past Cbosgjc-Puyjci-Depbvr Hx Past Med/Social Hx: Reviewed Nursing Past Med/Soc Hx Patient Social History Alcohol Use: Occasionally Uses Recreational Drug Use: No Smoking Status: Current Everyday Smoker Type Used: Cigarettes Recent Foreign Travel: No Contact w/Someone Who Travel: No Recent Infectious Disease Expo: No Recent Hopitalizations: No Physical Abuse: No Sexual Abuse: No Seasonal Allergies Seasonal Allergies: No Past Medical History Surgeries: Yes (Orthopedic) Respiratory: Yes Pulmonary Embolism Cardiac: Yes Deep Vein Thrombosis Neurological: Yes Stroke Genitourinary: No Gastrointestinal: No Musculoskeletal: No Endocrine: No HEENT: Yes (Blood Clot Behind the Eye) Psychosocial: No Integumentary: No Blood Disorders: Yes (Leiden Factor V) Physical Exam Vital Signs Vital Signs - First Documented 12/17/19 02:40 Temp 35.8 Pulse 77 Resp 16 B/P (MAP) 107/62 (77) Pulse Ox 98 O2 Delivery Room Air Capillary Refill : Less Than 3 Seconds Height, Weight, BMI Height: '" Weight: lbs. oz. kg; 36.00 BMI Method: General Appearance: No Apparent Distress, WD/WN, Other (smells of EtOH intoxicants) Eyes: Bilateral Eye Normal Inspection, Bilateral Eye PERRL, Bilateral Eye EOMI, Bilateral Eye Other (conjunctiva injected) HEENT: PERRL/EOMI, Pharynx Normal, Moist Mucous Membranes, Pharyngeal Erythema Neck: Supple Respiratory: Lungs Clear, Normal Breath Sounds Cardiovascular: Regular Rate, Rhythm Gastrointestinal: Non Tender, Soft Back: Normal Inspection, No CVA Tenderness Extremity: Non Tender, No Calf Tenderness Neurologic/Psychiatric: Alert, Oriented x3 Lymphatic: No Adenopathy Focused Exam Sepsis Stage: Ruled Out Progress/Results/Core Measures Suspected Sepsis Recent Fever Within 48 Hours: No Infection Criteria Present: None New/Unexplained Altered Menta: No Sepsis Screen: No Definite Risk SIRS Temperature: Pulse: 77 Respiratory Rate: 16 Laboratory Tests 12/17/19 02:55: White Blood Count 12.2H Blood Pressure 107 /62 Mean: 77 Laboratory Tests 12/17/19 02:55: Creatinine 1.08, INR Comment 1.5H, Platelet Count 314, Total Bilirubin 0.3 Results/Orders Lab Results Laboratory Tests Test 12/17/19 02:55 Range/Units White Blood Count 12.2 H 4.3-11.0 10^3/uL Red Blood Count 4.43 4.35-5.85 10^6/uL Hemoglobin 14.7 13.3-17.7 G/DL Hematocrit 43 40-54 % Mean Corpuscular Volume 96 80-99 FL Mean Corpuscular Hemoglobin 33 25-34 PG Mean Corpuscular Hemoglobin Concent 35 32-36 G/DL Red Cell Distribution Width 14.8 H 10.0-14.5 % Platelet Count 314 130-400 10^3/uL Mean Platelet Volume 9.6 7.4-10.4 FL Neutrophils (%) (Auto) 48 42-75 % Lymphocytes (%) (Auto) 40 12-44 % Monocytes (%) (Auto) 8 0-12 % Eosinophils (%) (Auto) 3 0-10 % Basophils (%) (Auto) 1 0-10 % Neutrophils # (Auto) 5.9 1.8-7.8 X 10^3 Lymphocytes # (Auto) 4.8 H 1.0-4.0 X 10^3 Monocytes # (Auto) 1.0 0.0-1.0 X 10^3 Eosinophils # (Auto) 0.4 H 0.0-0.3 10^3/uL Basophils # (Auto) 0.1 0.0-0.1 10^3/uL Neutrophils % (Manual) 51 % Lymphocytes % (Manual) 37 % Monocytes % (Manual) 5 % Eosinophils % (Manual) 6 % Band Neutrophils 1 % Prothrombin Time 17.9 H 12.2-14.7 SEC INR Comment 1.5 H 0.8-1.4 Sodium Level 140 135-145 MMOL/L Potassium Level 4.2 3.6-5.0 MMOL/L Chloride Level 105 98-107 MMOL/L Carbon Dioxide Level 22 21-32 MMOL/L Anion Gap 13 5-14 MMOL/L Blood Urea Nitrogen 9 7-18 MG/DL Creatinine 1.08 0.60-1.30 MG/DL Estimat Glomerular Filtration Rate > 60 BUN/Creatinine Ratio 8 Glucose Level 118 H 70-105 MG/DL Calcium Level 8.7 8.5-10.1 MG/DL Corrected Calcium 8.5-10.1 MG/DL Total Bilirubin 0.3 0.1-1.0 MG/DL Aspartate Amino Transf (AST/SGOT) 21 5-34 U/L Alanine Aminotransferase (ALT/SGPT) 20 0-55 U/L Alkaline Phosphatase 58 40-136 U/L Troponin I < 0.30 <0.30 NG/ML Total Protein 7.4 6.4-8.2 GM/DL Albumin 4.6 H 3.2-4.5 GM/DL Lipase 30 8-78 U/L My Orders Orders - LUPE GARCIA DO Ekg Tracing (12/17/19 02:46) Troponin I Fs (12/17/19 02:46) Cbc And Manual Diff (12/17/19 02:46) Comprehensive Metabolic Panel (12/17/19 02:46) Lipase (8/30/20 02:46) Chest 1 View Ap/Pa Only (12/17/19 02:46) Famotidine Injection (Pepcid Injection) (12/17/19 03:00) Protime With Inr (12/17/19 02:51) Enoxaparin Injection (Lovenox Injection) (12/17/19 03:30) Medications Given in ED Current Medications Medications Dose Ordered Sig/Julian Route Start Time Stop Time Status Last Admin Dose Admin Famotidine 20 mg ONCE ONCE IVP 12/17/19 03:00 12/17/19 03:01 DC 12/17/19 03:15 20 MG Vital Signs/I&O 12/17/19 02:40 Temp 35.8 Pulse 77 Resp 16 B/P (MAP) 107/62 (77) Pulse Ox 98 O2 Delivery Room Air Capillary Refill : Less Than 3 Seconds Blood Pressure Mean: 77 Departure Communication (Admissions) Chest x-ray: Reviewed EKG: Reviewed Impression Primary Impression: Chest pain Additional Impression: Subtherapeutic international normalized ratio (INR) Disposition: 01 HOME, SELF-CARE Condition: Stable Departure-Patient Inst. Decision time for Depature: 03:29 Referrals: JARRET CULP MD (PCP/Family) Primary Care Physician Patient Instructions: Chest Pain (DC) Add. Discharge Instructions: You were evaluated in the emergency department for chest pain. EKG lab and imaging studies were performed. Your INR is 1.5. Please take 15 mg of Coumadin along with low-dose baby aspirin for the next 2 days. Follow-up with your PCP in 2 days for INR recheck. Take daily antacid and limit alcohol use. Return to ED if new or worsening symptoms. Return to the ED if new or concerning symptoms. All discharge instructions reviewed with patient and/or family. Voiced und erstanding. LUPE GARCIA DO Dec 17, 2019 03:31
[2019-12-17 03:40] VITALS: BP 119/77
--- NOTE | 2019-12-17 06:52 | Diagnostic Imaging Report ---
INDICATION: Chest pain. TECHNIQUE: Single view chest 2:56 AM. CORRELATION STUDY: 05/08/2019 FINDINGS: Heart size enlarged. Vasculature overall within normal limits. The lungs are clear with no consolidating infiltrate. There is no significant effusion or pneumothorax. Old healed right clavicle fracture. IMPRESSION: 1. Negative for acute abnormality of the chest. Dictated by: Dictated on workstation # [id number]
== END 2019-12-17 03:41 | disposition home or self-care (01) ==
LOC: EDUNIT# 02:38 → ER FS 02:39
DX: R07.9 Chest pain, unspecified (principal); R79.1 Abnormal coagulation profile; R53.81 Other malaise; F17.210 Nicotine dependence, cigarettes, uncomplicated; Z91.041 Radiographic dye allergy status; Z86.718 Personal history of other venous thrombosis and embolism; Z86.711 Personal history of pulmonary embolism
CPT/HCPCS: 36415; 71045; 80053; 83690; 84484; 85007; 85027; 85610; 93005

== ENCOUNTER 2020-01-08 12:42 | Outpatient (RCR) | payer SELFPAY ==
[2020-01-08 13:19] LABS: INR 3.5 (0.8-1.4); PROTHROMBIN TIME PATIENT 35.3 SEC (12.2-14.7)
== END 2020-04-07 | disposition home or self-care (01) ==
LOC: LAB FS 12:42
PROVIDERS: ATTEND Pediatrics
DX: I26.99 Other pulmonary embolism without acute cor pulmonale (principal)
CPT/HCPCS: 36415; 85610

== ENCOUNTER → 2020-05-07 | Outpatient (CLI) | payer SELFPAY ==
[2020-05-07 14:58] LABS: PROTHROMBIN TIME PATIENT 22.7 SEC (12.2-14.7)
== END ==
LOC: LAB FS 14:22
PROVIDERS: ATTEND Pediatrics
DX: I26.99 Other pulmonary embolism without acute cor pulmonale (principal)
CPT/HCPCS: 36415; 85610

== ENCOUNTER 2020-06-12 12:36 | Emergency (ER) | payer SELFPAY ==
[~2020-06-12] VITALS: Ht 187.9 cm; Wt 128.5 kg
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
[2020-06-12 12:50] VITALS: BP 141/86
[2020-06-12] MEDS ORDERED: TETANUS,DIPTH,PERTUSS P/F (BOOSTRIX) 0.5 ML VIAL IM ONE (13:00)
--- NOTE | 2020-06-12 13:50 | Diagnostic Imaging Report ---
INDICATION: Pain and swelling of the left hand. COMPARISON: None. FINDINGS: 3 views of the left hand were obtained and show no fractures, dislocations, or other acute bony abnormalities. Joint spaces are well maintained throughout. The soft tissues appear unremarkable. No radiopaque foreign bodies are identified. IMPRESSION: Unremarkable radiographic exam of the left hand. Dictated by: Dictated on workstation # [id number]
== END 2020-06-12 13:51 | disposition home or self-care (01) ==
LOC: EDUNIT# 12:36 → ER FS 12:39
DX: S60.222A Contusion of left hand, initial encounter (principal); F17.210 Nicotine dependence, cigarettes, uncomplicated; Z91.041 Radiographic dye allergy status; Z23 Encounter for immunization; Z86.73 Personal history of transient ischemic attack (TIA), and cerebral infarction without residual deficits; Y04.8XXA Assault by other bodily force, initial encounter
CPT/HCPCS: 73130; 90715

== ENCOUNTER 2022-11-21 00:49 | Emergency (ER) | payer BC ==
[~2022-11-21] VITALS: Ht 188 cm; Wt 130.6 kg
[2022-11-21 00:54] VITALS: BP 126/72
--- NOTE | 2022-11-21 01:00 | ED EENT ---
History of Present Illness General Stated Complaint: L EAR BLEEDING History of Present Illness Date Seen by Provider: Nov 21, 2022 Time Seen by Provider: 00:53 Initial Comments 57-year-old male presents with bleeding out of his left ear. He denies any known trauma or injury. He reports he has been bleeding for at least 4 hours. Patient reports that he noticed it when he is out playing golf. He is on Coumadin for factor V Leiden. He denies sticking anything in his ear. No hearing difficulty. No pain Allergies and Home Medications Allergies Uncoded Allergies: IVP DYE (Allergy, Unknown, 12/27/18) Patient Home Medication List Home Medication List Reviewed: Yes Ciprofloxacin HCl/Dexameth (Ciprodex Otic Suspension) 0.3 %-0.1 % Soln, 7.5 ML OT BID Prescribed by: TSACY WAYNE on 11/21/22 0106 Review of Systems Review of Systems Constitutional: no symptoms reported Eyes: No Symptoms Reported Ears: See HPI, Bloody Discharge Nose: no symptoms reported Mouth: no symptoms reported Throat: no symptoms reported Respiratory: no symptoms reported Cardiovascular: no symptoms reported Gastrointestinal: no symptoms reported Musculoskeletal: no symptoms reported Physical Exam Vital Signs Vital Signs - First Documented 11/21/22 00:54 Temp 36.9 Pulse 83 Resp 20 B/P (MAP) 126/72 (90) Pulse Ox 95 O2 Delivery Room Air Height, Weight, BMI Height: '" Weight: lbs. oz. kg; BMI Method: General Appearance: WD/WN, no apparent distress Eyes: bilateral eye normal inspection Ears: left ear bleeding, left ear other (abrasion left ear canal ) Cardiovascular: normal peripheral pulses Respiratory: lungs clear, normal breath sounds Gastrointestinal: non tender, soft Neurologic/Psychiatric: no motor/sensory deficits, alert Skin: normal color, warm/dry Progress/Results/Core Measures Results/Orders Lab Results Laboratory Tests Test 11/21/22 01:13 Range/Units Prothrombin Time 41.3 H 12.2-14.7 SEC INR Comment 4.3 H 0.8-1.4 My Orders Orders - STACY WAYNE DO Protime With Inr (11/21/22 01:00) Vital Signs/I&O 11/21/22 00:54 Temp 36.9 Pulse 83 Resp 20 B/P (MAP) 126/72 (90) Pulse Ox 95 O2 Delivery Room Air Departure Impression Primary Impression: Ear bleeding Qualified Codes: H92.22 - Otorrhagia, left ear Additional Impression: Anticoagulated on Coumadin Disposition: 01 HOME, SELF-CARE Condition: Stable Departure-Patient Inst. Patient Instructions: Outer Ear Infection (DC), Outer Ear Infection ED, Bleeding Precautions Add. Discharge Instructions: Please follow-up with the ENT or your primary care provider in the next couple days for recheck. Scripts Ciprofloxacin HCl/Dexameth (Ciprodex Otic Suspension) 0.3 %-0.1 % Soln 7.5 ML OT BID for 5 Days, #1 EA Prov: STACY WAYNE DO 11/21/22 STACY WAYNE DO Nov 21, 2022 01:00
[2022-11-21] MEDS ORDERED: NF-CIPDEC OT (01:06)
[2022-11-21 01:30] LABS: INR 4.3 (0.8-1.4); PROTHROMBIN TIME PATIENT 41.3 SEC (12.2-14.7)
== END 2022-11-21 01:38 | disposition home or self-care (01) ==
LOC: EDUNIT# 00:49 → ER FS 00:52
DX: S00.412A Abrasion of left ear, initial encounter (principal); D68.51 Activated protein C resistance; Z79.01 Long term (current) use of anticoagulants; X58.XXXA Exposure to other specified factors, initial encounter; Y92.39 Other specified sports and athletic area as the place of occurrence of the external cause; Y93.53 Activity, golf
CPT/HCPCS: 36415; 85610; 99282